=== PATIENT | female | born 1975 | race Caucasian/White ===

== ENCOUNTER → 2020-09-11 13:21 | Outpatient (BNVA) | payer BC, SELFPAY | PROVIDERS: Family Provider Internal Medicine; PCP Internal Medicine; Visit Provider Nurse Practitioner | DX: M79.641 Pain in right hand (principal) | CPT/HCPCS: 73130 ==

== ENCOUNTER → 2021-04-21 15:15 | Outpatient (BNVA) | payer BC, SELFPAY | PROVIDERS: Family Provider Internal Medicine; PCP Internal Medicine; Visit Provider Nurse Practitioner | DX: Z13.6 Encounter for screening for cardiovascular disorders (principal); E04.9 Nontoxic goiter, unspecified | CPT/HCPCS: 80053; 80061; 84439; 84443; 84481; 86800 ==

== ENCOUNTER → 2021-05-06 14:52 | Outpatient (BNVA) | payer BC, SELFPAY | PROVIDERS: Family Provider Internal Medicine; PCP Internal Medicine; Visit Provider Nurse Practitioner | DX: R73.09 Other abnormal glucose (principal) | CPT/HCPCS: 83036 ==

== ENCOUNTER → 2022-04-15 15:53 | Outpatient (BNVA) | payer BC, SELFPAY | PROVIDERS: Family Provider Internal Medicine; PCP Internal Medicine; Visit Provider Nurse Practitioner Family | DX: J40 Bronchitis, not specified as acute or chronic (principal) | CPT/HCPCS: 71046 ==

== ENCOUNTER 2022-04-17 06:22 | Outpatient (CLI) | payer BC, SELFPAY ==
--- NOTE | 2022-04-17 06:30 | CT_ITS ---
WS: [id number] CT CHEST WITHOUT INTRAVENOUS CONTRAST HISTORY: Abnormal radiographic findings. TECHNIQUE: Contiguous 5 mm axial imaging performed on the thorax. Coronal and sagittal reformats are submitted. All CT scans at [facility] use at least one of these dose optimization techniques: automated exposure control; mA and/or kV adjustment per patient size (includes targeted exams where dose is matched to clinical indication); or iterative reconstruction. CONTRAST: None DLP: 378.01 mGy.cm COMPARISON: Chest radiograph 04/15/2022 Lungs and central airway: Benign partially calcified nodule at the lingula corresponds to the radiogr aphic finding. Nodule measures 10 mm. Additional 3 mm micronodules along the RIGHT major fissure. Federico y nonspecific. Cylindrical bronchiectasis LEFT lower lobe with bronchial wall thickening corresponds to the radiographic opacification. Marked bronchial wall thickening and luminal narrowing of several bronchi in the LEFT lower lobe. Pleura: Normal. No pleural effusion. Heart and pericardium: Normal size heart with no pericardial effusion. Mediastinum and olivia: No mediastinum or hilar adenopathy. Vessels: Normal size aortic and pulmonary artery. No coronary artery calcifications. Chest wall and lower neck: Minimally prominent thyroid extends substernal. No nodules are identified. Upper abdomen: Small hiatal hernia. Several low-attenuation masses within the liver. These are too sm all to characterize. Probably representing small cysts. Largest measures 10 mm. No adrenal mass. Osseous structures: No destructive process. CT/CT chest wo con [id number] IMPRESSION: 1. Benign granuloma lingula corresponds to the radiographic finding on 04/15/19 23. 2. Bronchiectasis with bronchial wall thickening LEFT lower lobe corresponds t o the opacification seen radiographically. Partial obstruction of several the b ronchi. Evaluation by bronchoscopy may be necessary for further evaluation. 3. Tiny micronodules along the RIGHT major fissure. 4. Low-attenuation nodules in the liver are too small to characterize but prob ably represent small cysts. Ultrasound could be obtained to further characteriz e.
== END 2022-04-17 06:23 | disposition home or self-care (01) ==
LOC: RAD 06:25
PROVIDERS: PCP Internal Medicine; Visit Provider Nurse Practitioner Family
DX: R91.8 Other nonspecific abnormal finding of lung field (principal); F17.200 Nicotine dependence, unspecified, uncomplicated; J40 Bronchitis, not specified as acute or chronic; J84.10 Pulmonary fibrosis, unspecified; J47.9 Bronchiectasis, uncomplicated
CPT/HCPCS: 71250

== ENCOUNTER → 2022-06-01 14:22 | Outpatient (BNVA) | payer BC, SELFPAY | PROVIDERS: PCP Nurse Practitioner; Visit Provider Internal Medicine Pulmonary Disease | DX: J47.9 Bronchiectasis, uncomplicated (principal); R06.02 Shortness of breath; F17.200 Nicotine dependence, unspecified, uncomplicated; R06.09 Other forms of dyspnea; K44.9 Diaphragmatic hernia without obstruction or gangrene | CPT/HCPCS: 36415; 80053; 82784; 82785; 85025; 86003 ==

== ENCOUNTER 2022-06-04 11:04 | Outpatient (CLI) | payer BC, SELFPAY ==
[2022-06-04 11:20] VITALS: PULSE 83; RESP 18; O2SAT 99
[2022-06-04] MEDS: albuterol 2.5 mg/3 mL Neb INHALATION (11:20)
[2022-06-04 11:25] VITALS: PULSE 92
== END 2022-06-04 11:05 | disposition home or self-care (01) ==
PROVIDERS: PCP Nurse Practitioner; Visit Provider Internal Medicine Pulmonary Disease
DX: J47.9 Bronchiectasis, uncomplicated (principal)
CPT/HCPCS: 94060; 94726; 94729

== ENCOUNTER → 2022-08-05 13:58 | Outpatient (BNVA) | payer BC, SELFPAY | PROVIDERS: PCP Nurse Practitioner; Visit Provider Internal Medicine Pulmonary Disease | DX: J47.9 Bronchiectasis, uncomplicated (principal) | CPT/HCPCS: 87015; 87070; 87077; 87116; 87184; 87205; 87206; 87801 ==

== ENCOUNTER → 2023-01-02 18:17 | Outpatient (BNVA) | payer BC, SELFPAY | PROVIDERS: PCP Nurse Practitioner; Visit Provider Registered Nurse Neonatal Intensive Care | DX: R05.9 Cough, unspecified (principal); R06.2 Wheezing | CPT/HCPCS: 87426 ==

== ENCOUNTER → 2023-04-28 10:37 | Outpatient (BNVA) | payer BC, SELFPAY | PROVIDERS: PCP Nurse Practitioner; Visit Provider Nurse Practitioner Family | DX: J47.9 Bronchiectasis, uncomplicated (principal); E66.9 Obesity, unspecified; J47.1 Bronchiectasis with (acute) exacerbation; J01.90 Acute sinusitis, unspecified | CPT/HCPCS: 80053; 80061; 83036; 84443; 85025 ==

== ENCOUNTER 2024-12-27 15:56 | Outpatient (CLI) | payer OTHER, SELFPAY ==
--- NOTE | 2024-12-27 16:01 | MM_ITS ---
WS: [id number] BILATERAL 3D TOMOSYNTHESIS DIGITAL SCREENING MAMMOGRAPHY WITH CAD CLINICAL INFORMATION: ANNUAL SCREENING HISTORY: Screening mammogram. No current complaints. COMPARISON: None. TECHNIQUE: Bilateral CC and MLO views. FINDINGS: The breasts are composed of heterogeneous fibroglandular density tissue, which can limit the detection of small underlying mass lesions. No suspicious mass, asymmetry, calcifications, or architectural distortion. No evidence of malignancy. Dense nodular tissue 12 o'clock position RIGHT breast. MM/MM [facility] tomosynthesis [id number] IMPRESSION: DENSITY: The breasts are heterogeneously dense, which may obscure small masses. BI-RADS: 2 - Benign FOLLOW UP: 1 Year Follow-up Recommend return to annual screening mammography.
== END 2024-12-27 15:57 | disposition home or self-care (01) ==
LOC: RAD 15:57
PROVIDERS: PCP Internal Medicine; Visit Provider Internal Medicine
DX: Z12.31 Encounter for screening mammogram for malignant neoplasm of breast (principal); R92.333 Mammographic heterogeneous density, bilateral breasts; R92.323 Mammographic fibroglandular density, bilateral breasts; N63.15 Unspecified lump in the right breast, overlapping quadrants
CPT/HCPCS: 77063; 77067

== ENCOUNTER → 2025-02-02 11:19 | Outpatient (BNVA) | payer OTHER, SELFPAY | PROVIDERS: PCP Internal Medicine; Visit Provider Nurse Practitioner Women's Health | DX: R41.89 Other symptoms and signs involving cognitive functions and awareness (principal) | CPT/HCPCS: 82306; 82670 ==

== ENCOUNTER 2025-03-14 13:37 | Outpatient (CLI) | payer OTHER, SELFPAY ==
--- NOTE | 2025-03-14 13:48 | XR_ITS ---
WS: [id number] XR chest 2V* [id number] REASON FOR EXAM: COUGH/BRONCHIECTASIS FINDINGS: The chest is essentially unchanged compared to 04/15/2022. There is mild tortuosity of the ascending and descending aorta. The heart size is within normal limits. Calcified granulomatous disease in both hemithoraces. No acute pulmonary parenchymal or pleural abnormality. The hemidiaphragms are flattened with expansion of the anterior clear space indicating hyperexpansion. The extensive cylindrical bronchiectasis in the left lower lung (CT scan 04/17/2022) is represented by subtle parallel linear retrocardiac opacities in the posterior left lower lobe. No significant abnormality of the bony thorax. XR/XR chest 2V* [id number] IMPRESSION: Stable abnormal chest.
== END 2025-03-14 13:38 | disposition home or self-care (01) ==
PROVIDERS: PCP Internal Medicine; Visit Provider Internal Medicine
DX: R05.8 Other specified cough (principal); I77.1 Stricture of artery; J98.4 Other disorders of lung
CPT/HCPCS: 71046